=== PATIENT | female | born 1995 | race Hispanic/Latino ===

== ENCOUNTER 2018-11-24 19:50 | Emergency (ER) | payer OTHER ==
[2018-11-24] MEDS ORDERED: PROVENTIL IH ONE (20:13)
--- NOTE | 2018-11-24 20:13 | Emergency Department Report ---
ED General Adult HPI - General Chief complaint: Dyspnea/Respdistress Stated complaint: SUZY Time Seen by Provider: 11/24/18 20:07 Source: patient, EMS Mode of arrival: Stretcher Limitations: No Limitations - History of Present Illness Initial comments: Patient is a 23-year-old female past history of asthma who presents with asthma exacerbation. Patient states that she had a severe asthma exacerbation. Nothing makes her symptoms better or worse. Patient has no chest pain she was giving CPAP albuterol nebs and Decadron via EMS. Patient has never been intubated before for asthma and never been admitted to the ICU. Patient states that she uses a baby inhaler and a baby nebulizer for her asthma exacerbation. Severity scale (0 -10): 0 - Related Data Previous Rx's Medication Instructions Recorded Last Taken Type Albuterol Sulfate [Albuterol 0.63% 0.63 mg IH TID PRN #1 box 11/24/18 Unknown Rx NEBS] predniSONE [Deltasone] 20 mg PO BID #10 tab 11/24/18 Unknown Rx Allergies Allergy/AdvReac Type Severity Reaction Status Date / Time No Known Allergies Allergy Unverified 11/24/18 20:06 ED Review of Systems ROS: Stated complaint: SUZY Other details as noted in HPI Constitutional: denies: chills, fever Eyes: denies: eye pain, eye discharge, vision change ENT: denies: ear pain, throat pain Respiratory: shortness of breath. denies: cough, wheezing Cardiovascular: denies: chest pain, palpitations Endocrine: no symptoms reported Gastrointestinal: denies: abdominal pain, nausea, diarrhea Genitourinary: denies: urgency, dysuria, discharge Musculoskeletal: denies: back pain, joint swelling, arthralgia Skin: denies: rash, lesions Neurological: denies: headache, weakness, paresthesias Psychiatric: denies: anxiety, depression Hematological/Lymphatic: denies: easy bleeding, easy bruising ED Past Medical Hx - Past Medical History Hx Asthma: Yes - Social History Smoking Status: Never Smoker Substance Use Type: None - Medications Home Medications: Home Medications Medication Instructions Recorded Confirmed Last Taken Type Albuterol Sulfate [Albuterol 0.63% 0.63 mg IH TID PRN #1 box 11/24/18 Unknown Rx NEBS] predniSONE [Deltasone] 20 mg PO BID #10 tab 11/24/18 Unknown Rx ED Physical Exam - General Limitations: No Limitations General appearance: alert, in no apparent distress - Head Head exam: Present: atraumatic, normocephalic - Eye Eye exam: Present: normal appearance - ENT ENT exam: Present: mucous membranes moist - Neck Neck exam: Present: normal inspection - Respiratory Respiratory exam: Present: wheezes. Absent: respiratory distress - Cardiovascular Cardiovascular Exam: Present: normal rhythm, tachycardia. Absent: systolic murmur, diastolic murmur, rubs, gallop - GI/Abdominal GI/Abdominal exam: Present: soft, normal bowel sounds - Extremities Exam Extremities exam: Present: normal inspection - Back Exam Back exam: Present: normal inspection - Neurological Exam Neurological exam: Present: alert, oriented X3 - Psychiatric Psychiatric exam: Present: normal affect, normal mood - Skin Skin exam: Present: warm, dry, intact, normal color. Absent: rash ED Course Vital Signs 11/24/18 11/24/18 11/24/18 19:52 20:00 20:31 Temperature 98.3 F Pulse Rate 122 H 126 H 114 H Pulse Rate [ Anterior Bilateral Throughout] Respiratory 26 H 12 15 Rate Respiratory Rate [Anterior Bilateral Throughout] Blood Pressure 127/88 127/88 122/78 O2 Sat by Pulse 93 95 96 Oximetry 11/24/18 11/24/18 11/24/18 20:52 21:00 22:09 Temperature Pulse Rate 110 H Pulse Rate [ 110 H 108 H Anterior Bilateral Throughout] Respiratory 16 Rate Respiratory 14 14 Rate [Anterior Bilateral Throughout] Blood Pressure 112/75 O2 Sat by Pulse 96 Oximetry ED Medical Decision Making - Lab Data Result diagrams: 11/24/18 21:12 11/24/18 21:12 Lab Results 11/24/18 11/24/18 11/24/18 Range/Units 21:12 21:12 21:12 WBC 14.0 H (4.5-11.0) K/mm3 RBC 4.36 (3.65-5.03) M/mm3 Hgb 13.1 (10.1-14.3) gm/dl Hct 38.2 (30.3-42.9) % MCV 88 (79-97) fl MCH 30 (28-32) pg MCHC 34 (30-34) % RDW 14.0 (13.2-15.2) % Plt Count 380 (140-440) K/mm3 Lymph % (Auto) 13.7 (13.4-35.0) % [place] % (Auto) 2.8 (0.0-7.3) % Eos % (Auto) 2.7 (0.0-4.3) % Baso % (Auto) 0.7 (0.0-1.8) % Lymph # 1.9 (1.2-5.4) K/mm3 Bee # 0.4 (0.0-0.8) K/mm3 Eos # 0.4 (0.0-0.4) K/mm3 Baso # 0.1 (0.0-0.1) K/mm3 Seg Neutrophils % 80.1 H (40.0-70.0) % Seg Neutrophils # 11.2 H (1.8-7.7) K/mm3 Sodium 143 (137-145) mmol/L Potassium 4.1 (3.6-5.0) mmol/L Chloride 107.5 H (98-107) mmol/L Carbon Dioxide 22 (22-30) mmol/L Anion Gap 18 mmol/L BUN 13 (7-17) mg/dL Creatinine 0.9 (0.7-1.2) mg/dL Estimated GFR > 60 ml/min BUN/Creatinine Ratio 14 % Glucose 113 H (65-100) mg/dL Calcium 8.8 (8.4-10.2) mg/dL HCG, Qual Negative (Negative) - EKG Data -: EKG Interpreted by Az - EKG Data 11/24/18 22:48 K she shows sinus tachycardia at rate 117segment elevation or T-wave inversion axis - Radiology Data Radiology results: report reviewed, image reviewed cxr: no acute cardiopulmonary disease - Medical Decision Making Cdx: Asthma exaberation ddx: PNA, bronchitis I will get albuterol treatment cxr, steroids and will discharge patient Patient is feeling better I will send her home Critical care attestation.: If time is entered above; I have spent that time in minutes in the direct care of this critically ill patient, excluding procedure time. ED Disposition Clinical Impression: Asthma exacerbation Qualifiers: Asthma severity: severe Asthma persistence: unspecified Qualified Code(s): J45.901 - Unspecified asthma with (acute) exacerbation Disposition: TO HOME OR SELFCARE Is pt being admited?: No Does the pt Need Aspirin: No Condition: Stable Instructions: Asthma (ED) Prescriptions: Albuterol Sulfate [Albuterol 0.63% NEBS] 0.63 mg IH TID PRN #1 box PRN Reason: Wheezing predniSONE [Deltasone] 20 mg PO BID #10 tab Referrals: ALYSHA LUTHER MD [Primary Care Provider] - 3-5 Days
[2018-11-24] MEDS ORDERED: ATROVENT IH ONE (20:14)
[2018-11-24 21:29] LABS: Basophils # (Auto) 0.1 K/mm3 (0.0-0.1); Basophils % (Auto) 0.7 % (0.0-1.8); Eosinophils # (Auto) 0.4 K/mm3 (0.0-0.4); Eosinophils % (Auto) 2.7 % (0.0-4.3); Hematocrit 38.2 % (30.3-42.9); Hemoglobin 13.1 gm/dl (10.1-14.3); Lymphocytes # (Auto) 1.9 K/mm3 (1.2-5.4); Lymphocytes % (Auto) 13.7 % (13.4-35.0); Mean Corpuscular HGB Conc 34 % (30-34); Mean Corpuscular Volume 88 fl (79-97); Monocytes # (Auto) 0.4 K/mm3 (0.0-0.8); Monocytes % (Auto) 2.8 % (0.0-7.3); Platelet Count 380 K/mm3 (140-440); Red Blood Count 4.36 M/mm3 (3.65-5.03)
[2018-11-24 21:40] LABS: BUN/Creatinine Ratio 14; Blood Urea Nitrogen 13 mg/dL (7-17); Calcium 8.8 mg/dL (8.4-10.2); Hemolysis Index 6
--- NOTE | 2018-11-24 22:19 | XRay Report ---
XR CHEST 1V AP CLINICAL INDICATION: Female, 23 years of age. sob COMPARISON: None available. Findings: Frontal view(s) of the chest obtained. Cardiac silhouette is within normal limits. No gr oss focal consolidation or effusion. No gross pneumothorax. IMPRESSION: No grossly acute findings. This document is electronically signed by Michael Mcgee DO., November 24 2018 10:17:27 PM ET
[2018-11-24] MEDS ORDERED: LOPRESSOR IV ONE (22:42)
[2018-11-24 23:34] VITALS: BP 110/77
== END 2018-11-24 23:31 | disposition home or self-care (01) ==
LOC: ED 19:50
DX: J45.901 Unspecified asthma with (acute) exacerbation (principal)
CPT/HCPCS: 36415; 71045; 80048; 84703; 85025; 93005; 93010; 94640

== ENCOUNTER 2018-11-27 09:05 | Emergency (ER) | payer OTHER ==
[2018-11-27] MEDS ORDERED: ZOFRAN IV ONE ×3 (09:36→13:40)
[2018-11-27] MEDS ORDERED: MORPHINE IV ONE ×3 (09:36→13:40)
[2018-11-27] MEDS ORDERED: NACL 0.9% 1000 ML 1,000 ML IV ONE (09:36)
[2018-11-27] MEDS ORDERED: MORPHINE ONE (09:40)
[2018-11-27] MEDS ORDERED: ZOFRAN ONE (09:40)
[2018-11-27] MEDS ORDERED: NACL 0.9% 1000 ML 1,000 ML ONE (09:40)
--- NOTE | 2018-11-27 10:50 | Emergency Department Report ---
ED General Adult HPI - General Chief complaint: Abdominal Pain Stated complaint: BACK/ABD PAIN Time Seen by Provider: 11/27/18 10:26 Source: patient Mode of arrival: Ambulatory Limitations: No Limitations - History of Present Illness Initial comments: Patient complains of lower abdominal pain most probably in the right lower quadrant that started at 4 AM this morning. Patient states the pain radiates into her back. Patient denies any chest pain, shows poor, or headache. -: Sudden Location: abdomen Radiation: back Severity scale (0 -10): 9 Quality: stabbing Consistency: constant Improves with: none Worsens with: none Associated Symptoms: denies other symptoms Treatments Prior to Arrival: none - Related Data Previous Rx's Medication Instructions Recorded Last Taken Type Albuterol Sulfate [Albuterol 0.63% 0.63 mg IH TID PRN #1 box 11/24/18 Unknown Rx NEBS] predniSONE [Deltasone] 20 mg PO BID #10 tab 11/24/18 Unknown Rx HYDROcodone/APAP 5-325 [[place] 1 each PO Q6HR PRN #12 tablet 11/27/18 Unknown Rx 5/325] Ketorolac [Toradol] 10 mg PO Q6H PRN #12 tablet 11/27/18 Unknown Rx Ondansetron [Zofran Odt] 4 mg PO Q4HR PRN #20 tab.rapdis 11/27/18 Unknown Rx Promethazine [Phenergan TAB] 25 mg PO Q6HR PRN #20 tab 11/27/18 Unknown Rx levoFLOXacin [Levaquin] 750 mg PO QDAY #7 tablet 11/27/18 Unknown Rx Allergies Allergy/AdvReac Type Severity Reaction Status Date / Time No Known Allergies Allergy Unverified 11/24/18 20:06 ED Review of Systems ROS: Stated complaint: BACK/ABD PAIN Other details as noted in HPI Comment: All other systems reviewed and negative Constitutional: denies: chills, fever Eyes: denies: eye pain, eye discharge, vision change ENT: denies: ear pain, throat pain Respiratory: denies: cough, shortness of breath, wheezing Cardiovascular: denies: chest pain, palpitations Endocrine: no symptoms reported Gastrointestinal: abdominal pain. denies: nausea, diarrhea Genitourinary: denies: urgency, dysuria, discharge Musculoskeletal: denies: back pain, joint swelling, arthralgia Skin: denies: rash, lesions Neurological: denies: headache, weakness, paresthesias Psychiatric: denies: anxiety, depression Hematological/Lymphatic: denies: easy bleeding, easy bruising ED Past Medical Hx - Past Medical History Previous Medical History?: Yes Hx Asthma: Yes - Surgical History Past Surgical History?: No - Social History Smoking Status: Never Smoker Substance Use Type: None - Medications Home Medications: Home Medications Medication Instructions Recorded Confirmed Last Taken Type Albuterol Sulfate [Albuterol 0.63% 0.63 mg IH TID PRN #1 box 11/24/18 Unknown Rx NEBS] predniSONE [Deltasone] 20 mg PO BID #10 tab 11/24/18 Unknown Rx HYDROcodone/APAP 5-325 [[place] 1 each PO Q6HR PRN #12 tablet 11/27/18 Unknown Rx 5/325] Ketorolac [Toradol] 10 mg PO Q6H PRN #12 tablet 11/27/18 Unknown Rx Ondansetron [Zofran Odt] 4 mg PO Q4HR PRN #20 tab.rapdis 11/27/18 Unknown Rx Promethazine [Phenergan TAB] 25 mg PO Q6HR PRN #20 tab 11/27/18 Unknown Rx levoFLOXacin [Levaquin] 750 mg PO QDAY #7 tablet 11/27/18 Unknown Rx ED Physical Exam - General Limitations: No Limitations General appearance: alert, in no apparent distress - Head Head exam: Present: atraumatic, normocephalic - Eye Eye exam: Present: normal appearance, PERRL, EOMI - ENT ENT exam: Present: mucous membranes moist - Neck Neck exam: Present: normal inspection - Respiratory Respiratory exam: Present: normal lung sounds bilaterally. Absent: respiratory distress, wheezes, rales - Cardiovascular Cardiovascular Exam: Present: regular rate, normal rhythm. Absent: systolic murmur, diastolic murmur, rubs, gallop - GI/Abdominal GI/Abdominal exam: Present: soft, tenderness (TTP of RLQ), normal bowel sounds. Absent: distended - Extremities Exam Extremities exam: Present: normal inspection - Back Exam Back exam: Present: other (right CVA TTP) - Neurological Exam Neurological exam: Present: alert, oriented X3 - Psychiatric Psychiatric exam: Present: normal affect, normal mood - Skin Skin exam: Present: warm, dry, intact, normal color. Absent: rash ED Course Vital Signs 11/27/18 11/27/18 11/27/18 09:22 09:25 09:30 Temperature 97.5 F L Pulse Rate Respiratory Rate Blood Pressure 165/87 O2 Sat by Pulse 97 96 Oximetry 11/27/18 11/27/18 11/27/18 09:40 09:46 10:00 Temperature 97.8 F Pulse Rate 60 Respiratory 18 Rate Blood Pressure 142/79 125/80 O2 Sat by Pulse 97 97 97 Oximetry 11/27/18 11/27/18 11/27/18 10:15 10:30 10:45 Temperature Pulse Rate Respiratory Rate Blood Pressure 112/73 125/80 142/86 O2 Sat by Pulse 97 97 95 Oximetry 11/27/18 11/27/18 11/27/18 11:00 11:27 11:30 Temperature Pulse Rate Respiratory Rate Blood Pressure 142/86 141/74 141/74 O2 Sat by Pulse 79 L 95 96 Oximetry 11/27/18 11/27/18 12:00 12:30 Temperature Pulse Rate Respiratory Rate Blood Pressure 131/62 131/62 O2 Sat by Pulse 95 95 Oximetry ED Medical Decision Making - Lab Data Result diagrams: 11/27/18 10:46 11/27/18 10:46 Lab Results 11/27/18 11/27/18 11/27/18 Range/Units 10:46 10:46 11:30 WBC 19.9 H (4.5-11.0) K/mm3 RBC 4.33 (3.65-5.03) M/mm3 Hgb 12.9 (10.1-14.3) gm/dl Hct 38.0 (30.3-42.9) % MCV 88 (79-97) fl MCH 30 (28-32) pg MCHC 34 (30-34) % RDW 13.7 (13.2-15.2) % Plt Count 412 (140-440) K/mm3 Lymph % (Auto) 18.4 (13.4-35.0) % [place] % (Auto) 7.2 (0.0-7.3) % Eos % (Auto) 0.0 (0.0-4.3) % Baso % (Auto) 0.4 (0.0-1.8) % Lymph # 3.7 (1.2-5.4) K/mm3 [place] # 1.4 H (0.0-0.8) K/mm3 Eos # 0.0 (0.0-0.4) K/mm3 Baso # 0.1 (0.0-0.1) K/mm3 Seg Neutrophils % 74.0 H (40.0-70.0) % Seg Neutrophils # 14.8 H (1.8-7.7) K/mm3 Sodium 140 (137-145) mmol/L Potassium 4.0 (3.6-5.0) mmol/L Chloride 102.0 (98-107) mmol/L Carbon Dioxide 23 (22-30) mmol/L Anion Gap 19 mmol/L BUN 22 H (7-17) mg/dL Creatinine 1.0 (0.7-1.2) mg/dL Estimated GFR > 60 ml/min BUN/Creatinine Ratio 22 % Glucose 107 H (65-100) mg/dL Calcium 8.9 (8.4-10.2) mg/dL Total Bilirubin 0.30 (0.1-1.2) mg/dL AST 14 (5-40) units/L ALT 20 (7-56) units/L Alkaline Phosphatase 65 (35-129) units/L Total Protein 7.2 (6.3-8.2) g/dL Albumin 4.2 (3.9-5) g/dL Albumin/Globulin Ratio 1.4 % Lipase 33 (13-60) units/L Urine Color Yellow (Yellow) Urine Turbidity Clear (Clear) Urine pH 5.0 (5.0-7.0) Ur Specific Reader 1.023 (1.003-1.030) Urine Protein <15 mg/dl (Negative) mg/dL Urine Glucose (UA) Neg (Negative) mg/dL Urine Ketones Neg (Negative) mg/dL Urine Blood Mod (Negative) Urine Nitrite Neg (Negative) Urine Bilirubin Neg (Negative) Urine Urobilinogen < 2.0 (<2.0) mg/dL Ur Leukocyte Esterase Neg (Negative) Urine WBC (Auto) 1.0 (0.0-6.0) /HPF Urine RBC (Auto) 41.0 (0.0-6.0) /HPF U Epithel Cells (Auto) 4.0 (0-13.0) /HPF Urine Mucus Few /HPF Urine HCG, Qual Negative (Negative) - Radiology Data Radiology results: report reviewed - Medical Decision Making Test results with the patient and her guest Critical care attestation.: If time is entered above; I have spent that time in minutes in the direct care of this critically ill patient, excluding procedure time. ED Disposition Clinical Impression: Flank pain, Leukocytosis Disposition: - TO HOME OR SELFCARE Is pt being admited?: No Does the pt Need Aspirin: No Condition: Stable Instructions: Flank Pain (ED), Renal Colic (ED), Kidney Stones (ED) Additional Instructions: return if worse Prescriptions: levoFLOXacin [Levaquin] 750 mg PO QDAY #7 tablet HYDROcodone/APAP 5-325 [[place] 5/325] 1 each PO Q6HR PRN #12 tablet PRN Reason: Pain Promethazine [Phenergan TAB] 25 mg PO Q6HR PRN #20 tab PRN Reason: Nausea Ketorolac [Toradol] 10 mg PO Q6H PRN #12 tablet PRN Reason: Pain Ondansetron [Zofran Odt] 4 mg PO Q4HR PRN #20 tab.rapdis PRN Reason: Nausea Referrals: AUDIE MOSHERASHLAND MD [facility] [Primary Care Provider] - 3-5 Days [facility] [Provider Group] - 3-5 Days [facility] [Provider Group] - 3-5 Days OLU CASTELLANOS MD [Staff Physician] - 3-5 Days Time of Disposition: 13:53
[2018-11-27 11:12] LABS: Basophils # (Auto) 0.1 K/mm3 (0.0-0.1); Basophils % (Auto) 0.4 % (0.0-1.8); Hemoglobin 12.9 gm/dl (10.1-14.3); Lymphocytes # (Auto) 3.7 K/mm3 (1.2-5.4); Lymphocytes % (Auto) 18.4 % (13.4-35.0); Mean Corpuscular HGB Conc 34 % (30-34); Mean Corpuscular Volume 88 fl (79-97); Monocytes # (Auto) 1.4 K/mm3 (0.0-0.8); Monocytes % (Auto) 7.2 % (0.0-7.3); Platelet Count 412 K/mm3 (140-440); Red Blood Count 4.33 M/mm3 (3.65-5.03); Red Cell Distribution Width 13.7 % (13.2-15.2)
[2018-11-27 11:37] LABS: Alanine Aminotransferase 20 units/L (7-56); Albumin 4.2 g/dL (3.9-5); BUN/Creatinine Ratio 22; Blood Urea Nitrogen 22 mg/dL (7-17); Calcium 8.9 mg/dL (8.4-10.2); Hemolysis Index 8
[2018-11-27 11:59] LABS: Bilirubin,Urine NEG (Negative); Blood,Urine MOD (Negative); Color,Urine Yellow (Yellow); Mucus,Urine FEW /HPF; Protein,Urine <15 mg/dL mg/dL (Negative); Urobilinogen,Urine < 2.0 mg/dL (<2.0)
[2018-11-27 12:07] LABS: HCG Qualitative,Urine Negative (Negative)
--- NOTE | 2018-11-27 13:30 | Cat Scan Report ---
CT scan of abdomen and pelvis without IV contrast: History: Right lower quadrant abdominal pain. Findings: Normal liver spleen pancreas and gallbladder. Normal left adrenal gland. Calcification in the left adrenal gland without a mass. Right kidney appears enlarged compared to left. There is mild dilatation noted of right ureter with ill-defined wall. No calculus is seen along the course of the ureter and into the bladder. Left kidney and collecting system appears normal. No evidence of appendicitis or diverticulitis. Minimal stool in colon. No bowel distention. No free intraperitoneal fluid or air. Impression: Dilatation of right ureter with enlargement of right kidney probably reflects recent passage of calculus. Other possibility would be acute pyelonephritis.
[2018-11-27] MEDS ORDERED: TORADOL IVP ONE (13:40)
[2018-11-27] MEDS ORDERED: LEVAQUIN PO ONE (13:51)
[2018-11-27] MEDS ORDERED: LEVAQUIN ONE (13:51)
[2018-11-27 13:58] VITALS: BP 136/69
== END 2018-11-27 14:17 | disposition home or self-care (01) ==
LOC: ED 09:05
DX: D72.829 Elevated white blood cell count, unspecified (principal); R10.31 Right lower quadrant pain; J45.909 Unspecified asthma, uncomplicated
CPT/HCPCS: 36415; 74176; 80053; 81001; 81025; 83690; 85025; 96374; 96375; 96376; 99284; J1885; J2270; J2405; J7030

== ENCOUNTER 2022-02-13 06:53 | Emergency (ER) | payer OTHER ==
[2022-02-13 09:07] LABS: HCG Qualitative,Urine Negative (Negative)
[2022-02-13 09:24] LABS: Amorphous Crystals,Urine 1+; Bacteria,Urine 1+ /HPF (Negative); Bilirubin,Urine NEG (Negative); Blood,Urine NEG (Negative); Color,Urine Amber (Yellow); Mucus,Urine 2+ /HPF; Urobilinogen,Urine < 2.0 mg/dL (<2.0)
--- NOTE | 2022-02-13 11:16 | Emergency Department Report ---
ED N/V/D HPI - General Chief complaint: Abdominal Pain Stated complaint: SOB/VOMITING X 2 DAYS Source: patient Mode of arrival: Ambulatory Limitations: No Limitations - History of Present Illness Initial comments: 26-year-old female presents to the ED complaining of vomiting and diarrhea x2 days after eating sushi. Patient states that she took some Dramamine [id number] without any relief. Patient states abdominal spasm from vomiting. Patient has no active vomiting at present time. Patient denies any dysuria or vaginal discharge. Patient denies any chest pain fever or chills at present time. Patient is alert and oriented x3. No acute distress noted. No ill appearance noted. MD complaint: nausea, vomiting, diarrhea Onset/Timin -: days(s) Description of Vomiting: watery Associated Abdominal Pain: Yes Location: diffuse - Related Data Previous Rx's Medication Instructions Recorded Last Taken Type Albuterol Sulfate [Albuterol 0.63% 0.63 mg IH TID PRN #1 box 11/24/18 Unknown Rx NEBS] predniSONE [Deltasone] 20 mg PO BID #10 tab 11/24/18 Unknown Rx HYDROcodone/APAP 5-325 [[place] 1 each PO Q6HR PRN #12 tablet 11/27/18 Unknown Rx 5/325] Ketorolac [Toradol] 10 mg PO Q6H PRN #12 tablet 11/27/18 Unknown Rx Ondansetron [Zofran Odt] 4 mg PO Q4HR PRN #20 tab.rapdis 11/27/18 Unknown Rx Promethazine [Phenergan TAB] 25 mg PO Q6HR PRN #20 tab 11/27/18 Unknown Rx levoFLOXacin [Levaquin] 750 mg PO QDAY #7 tablet 11/27/18 Unknown Rx Ondansetron [Zofran Odt] 4 mg PO Q8HR PRN #10 tab.rapdis 02/26/20 Unknown Rx predniSONE [Deltasone] 20 mg PO DAILY #5 tablet 02/26/20 Unknown Rx Dicyclomine [Bentyl] 20 mg PO QID 5 Days #20 tablet 02/13/22 Unknown Rx Promethazine [Phenergan] 25 mg PO Q6HR PRN 15 Days #30 tab 02/13/22 Unknown Rx Allergies Allergy/AdvReac Type Severity Reaction Status Date / Time No Known Allergies Allergy Unverified 02/26/20 04:05 ED Review of Systems ROS: Stated complaint: SOB/VOMITING X 2 DAYS Other details as noted in HPI Constitutional: denies: chills, fever Eyes: denies: eye pain, eye discharge, vision change ENT: denies: ear pain, throat pain Respiratory: denies: cough, shortness of breath, wheezing Cardiovascular: denies: chest pain, palpitations Endocrine: no symptoms reported Gastrointestinal: vomiting, diarrhea. denies: abdominal pain, nausea Genitourinary: denies: urgency, dysuria, discharge Musculoskeletal: denies: back pain, joint swelling, arthralgia Skin: denies: rash, lesions Neurological: denies: headache, weakness, paresthesias Psychiatric: denies: anxiety, depression Hematological/Lymphatic: denies: easy bleeding, easy bruising ED Past Medical Hx - Past Medical History Previous Medical History?: Yes Hx Asthma: Yes - Surgical History Past Surgical History?: No - Social History Smoking Status: Never Smoker Substance Use Type: None - Medications Home Medications: Home Medications Medication Instructions Recorded Confirmed Last Taken Type Albuterol Sulfate [Albuterol 0.63% 0.63 mg IH TID PRN #1 box 11/24/18 Unknown Rx NEBS] predniSONE [Deltasone] 20 mg PO BID #10 tab 11/24/18 Unknown Rx HYDROcodone/APAP 5-325 [[place] 1 each PO Q6HR PRN #12 tablet 11/27/18 Unknown Rx 5/325] Ketorolac [Toradol] 10 mg PO Q6H PRN #12 tablet 11/27/18 Unknown Rx Ondansetron [Zofran Odt] 4 mg PO Q4HR PRN #20 tab.rapdis 11/27/18 Unknown Rx Promethazine [Phenergan TAB] 25 mg PO Q6HR PRN #20 tab 11/27/18 Unknown Rx levoFLOXacin [Levaquin] 750 mg PO QDAY #7 tablet 11/27/18 Unknown Rx Ondansetron [Zofran Odt] 4 mg PO Q8HR PRN #10 tab.rapdis 02/26/20 Unknown Rx predniSONE [Deltasone] 20 mg PO DAILY #5 tablet 02/26/20 Unknown Rx Dicyclomine [Bentyl] 20 mg PO QID 5 Days #20 tablet 02/13/22 Unknown Rx Promethazine [Phenergan] 25 mg PO Q6HR PRN 15 Days #30 tab 02/13/22 Unknown Rx ED Physical Exam - General Limitations: No Limitations General appearance: alert, in no apparent distress - Head Head exam: Present: atraumatic, normocephalic - Eye Eye exam: Present: normal appearance - ENT ENT exam: Present: mucous membranes moist - Neck Neck exam: Present: normal inspection - Respiratory Respiratory exam: Present: normal lung sounds bilaterally. Absent: respiratory distress - Cardiovascular Cardiovascular Exam: Present: regular rate, normal rhythm. Absent: systolic mur mur, diastolic murmur, rubs, gallop - GI/Abdominal GI/Abdominal exam: Present: soft, normal bowel sounds - Extremities Exam Extremities exam: Present: normal inspection - Back Exam Back exam: Present: normal inspection - Neurological Exam Neurological exam: Present: alert, oriented X3 - Psychiatric Psychiatric exam: Present: normal affect, normal mood - Skin Skin exam: Present: warm, dry, intact, normal color. Absent: rash ED Course Vital Signs 02/13/22 02/13/22 08:15 13:03 Temperature 97.9 F Pulse Rate 70 70 Respiratory 16 16 Rate Blood Pressure 150/61 150/60 [Left] O2 Sat by Pulse 96 97 Oximetry ED Medical Decision Making - Lab Data Result diagrams: 02/13/22 11:26 02/13/22 11:26 - Medical Decision Making 26-year-old female presents to the ED complaining of vomiting and diarrhea x2 days after eating sushi. Patient states that she took some Dramamine [id number] without any relief. Patient states abdominal spasm from vomiting. Patient has no active vomiting at present time. Patient denies any dysuria or vaginal discharge. Patient denies any chest pain fever or chills at present time. Patient is alert and oriented x3. No acute distress noted. No ill appearance noted. Physical Examination is unremarkable. Patient given normal saline 1 L. Zofran 4 mg IV. Rechecked the patient is resting quietly quietly and comfortable and feeling better. I discussed the results of diagnostic study, my clinical impression and the plan for further treatment with the patient. Patient agrees with plan and discharge at this present time. All question addressed. I have given the patient instruction regarding a diagnosis ,expectation ,follow- up and return precaution. I explained to the patient that emergent condition may arise and to return to the ED for new worsen and any new persisting condition. I have explained the importance of following up with the primary care physician or referral physician listed below has instructed. The patient verbalized understanding of discharge instruction. Abnormal Lab Results 02/13/22 02/13/22 02/13/22 11:26 11:26 Unknown WBC 9.4 RBC 4.74 Hgb 14.4 H Hct 43.0 H MCV 91 MCH 30 MCHC 34 RDW 13.5 Plt Count 362 Lymph % (Auto) 13.7 [place] % (Auto) 8.8 H Eos % (Auto) 0.0 Baso % (Auto) 0.2 Lymph # (Auto) 1.3 [place] # (Auto) 0.8 Eos # (Auto) 0.0 Baso # (Auto) 0.0 Seg Neutrophils % 77.3 H Seg Neutrophils # 7.2 Sodium 136 L Potassium 3.7 Chloride 101.8 Carbon Dioxide 22 Anion Gap 16 BUN 9 Creatinine 0.8 Estimated GFR > 60 BUN/Creatinine Ratio 11 Glucose 124 H Calcium 9.1 Total Bilirubin 0.70 AST 33 ALT 41 Alkaline Phosphatase 76 Total Protein 8.0 Albumin 4.5 Albumin/Globulin Ratio 1.3 Lipase 11 L Urine Color Jess Urine Turbidity Turbid Urine pH 5.0 Ur Specific [place] 1.024 Urine Protein 100 mg/dl Urine Glucose (UA) Neg Urine Ketones Neg Urine Blood Neg Urine Nitrite Neg Ur Reducing Substances Not Reportable Urine Bilirubin Neg Urine Ictotest Not Reportable Urine Urobilinogen < 2.0 Ur Leukocyte Esterase Neg Urine WBC (Auto) 3.0 Urine RBC (Auto) 3.0 U Epithel Cells (Auto) 13.0 Urine Bacteria (Auto) 1+ Amorphous Crystals 1+ Urine Mucus 2+ Urine HCG, Qual Negative Critical care attestation.: If time is entered above; I have spent that time in minutes in the direct care of this critically ill patient, excluding procedure time. ED Disposition Clinical Impression: Gastroenteritis Disposition: 01 HOME / SELF CARE / HOMELESS Is pt being admited?: No Does the pt Need Aspirin: No Condition: Stable Instructions: Viral Gastroenteritis, Adult, Viral Gastroenteritis, Adult, [id number], Food Poisoning, Abdominal Pain (ED) Additional Instructions: Medication as prescribed return to ed any worsen symptoms Prescriptions: Dicyclomine [Bentyl] 20 mg PO QID 5 Days #20 tablet Promethazine [Phenergan] 25 mg PO Q6HR PRN 15 Days #30 tab PRN Reason: Nausea Referrals: PRIMARY CARE, [Primary Care Provider] - 3-5 Days [facility] [Provider Group] - 3-5 Days Forms: Work/School Release Form(ED) Time of Disposition: 12:36
[2022-02-13] MEDS: SODIUM CHLORIDE 0.9% 1000 ML 1,000 ML IV ONE (11:19)
[2022-02-13] MEDS: DICYCLOMINE 20 MG TAB PO ONE (11:20)
[2022-02-13] MEDS: ONDANSETRON 4 MG/2 ML INJ IV ONE (11:20)
[2022-02-13 11:41] LABS: Basophils % (Auto) 0.2 % (0.0-1.8); Hemoglobin 14.4 gm/dl (10.1-14.3); Lymphocytes # (Auto) 1.3 K/mm3 (1.2-5.4); Lymphocytes % (Auto) 13.7 % (13.4-35.0); Mean Corpuscular HGB Conc 34 % (30-34); Mean Corpuscular Volume 91 fl (79-97); Monocytes # (Auto) 0.8 K/mm3 (0.0-0.8); Monocytes % (Auto) 8.8 % (0.0-7.3); Platelet Count 362 K/mm3 (140-440); Red Blood Count 4.74 M/mm3 (3.65-5.03); Red Cell Distribution Width 13.5 % (13.2-15.2)
[2022-02-13 11:58] LABS: Alanine Aminotransferase 41 units/L (7-56); Albumin 4.5 g/dL (3.9-5); BUN/Creatinine Ratio 11; Blood Urea Nitrogen 9 mg/dL (7-17); Calcium 9.1 mg/dL (8.4-10.2); Hemolysis Index 3
[2022-02-13 13:04] VITALS: BP 150/60
== END 2022-02-13 13:03 | disposition home or self-care (01) ==
LOC: ED 06:53
DX: K52.9 Noninfective gastroenteritis and colitis, unspecified (principal); J45.909 Unspecified asthma, uncomplicated; Z79.899 Other long term (current) drug therapy
CPT/HCPCS: 36415; 80053; 81001; 81025; 83690; 85025; 96361; 96374; 99283; J2405; J7030